=== PATIENT | male | born 1975 | race African-American/Black ===

== ENCOUNTER 2021-09-19 10:13 | Emergency (ER) | payer SELFPAY ==
--- NOTE | 2021-09-19 12:04 | RAD REPORT ---
EXAM DESCRIPTION: RAD - Lumbar Spine 3 Views - 09/19/2021 11:58 am CLINICAL HISTORY: low back pain COMPARISON: <Comparisons> FINDINGS: No acute fracture. No malalignment. Mild endplate spurring at L3-4 at L4-5. IMPRESSION: No acute osseous abnormality involving the lumbar spine.
[2021-09-19] MEDS ORDERED: ONDANSETRON 4 MG/2 ML VIAL ONE (12:16)
[2021-09-19] MEDS ORDERED: DIAZEPAM 10 MG/2 ML INJ SYRINGE ONE (12:16)
[2021-09-19] MEDS ORDERED: MORPHINE 4 MG/ML SYR ONE (12:16)
--- NOTE | 2021-09-19 14:10 | EDPHYS ---
Physician Documentation [facility] Name: Job Shell Age: 46 yrs Sex: Male : 1975 Arrival Date: 09/19/2021 Time: 10:19 Bed 24 Private MD: ED Physician Errol Moulton HPI: 09/19 10:21 This 46 yrs old Black Male presents to ER via EMS with complaints of Low Back Pain. jmm 10:21 The patient presents with pain that is acute. The pain does not radiate. Onset: The jmm symptoms/episode began/occurred acutely, just prior to arrival. This is a 46 year old male with no chronic medical conditions that presents to the ED with complaints of left lower back pain. Patient states this occurred after bending and the pain dropped him to his knees. Denies radiation of pain. Denies bowel or urinary issues. . Historical: - Allergies: 10:20 No Known Allergies; ss - Home Meds: 10:20 None [Active]; ss - PMHx: 10:20 None; ss - PSHx: 10:20 None; ss - Immunization history:: Client reports receiving the 2nd dose of the Covid vaccine. - Social history:: Smoking status: Patient denies any tobacco usage or history of. ROS: 10:21 Constitutional: Negative for fever, chills, and weight loss, Cardiovascular: Negative jmm for chest pain, palpitations, and edema, Respiratory: Negative for shortness of breath, cough, wheezing, and pleuritic chest pain. 10:21 Back: Positive for pain with movement. 10:21 All other systems are negative. Exam: 10:21 Constitutional: This is a well developed, well nourished patient who is awake, alert, jmm and in no acute distress. Head/Face: atraumatic. Eyes: EOMI, no conjunctival erythema appreciated ENT: Moist Mucus Membranes Neck: Trachea midline, Supple Chest/axilla: Normal chest wall appearance and motion. Cardiovascular: Regular rate and rhythm. No edema appreciated Respiratory: Normal respirations, no respiratory distress appreciated Abdomen/GI: Non distended, soft Skin: General appearance color normal 10:21 Back: no midline tenderness, left sided lumbar tenderness. . 10:21 Musculoskeletal/extremity: ROM: intact in all extremities. 10:21 Skin: Appearance: Color: normal in color. 10:21 Neuro: Orientation: is normal, Mentation: is normal, Memory: is normal. 10:21 Psych: Behavior/mood is pleasant, cooperative. Vital Signs: 10:19 BP 170 / 89; Pulse 64; Resp 17; Temp 98.4(O); Pulse Ox 100% on R/A; Weight 102.06 kg; ss Height 6 ft. 2 in. (187.96 cm); Pain 5/10; 12:18 BP 164 / 104; Pulse 69; Resp 17; Pulse Ox 100% on R/A; ab2 12:49 BP 106 / 45; Pulse 79; Resp 17; Pulse Ox 100% on R/A; ab2 13:33 BP 175 / 111; Pulse 80; Resp 17; Pulse Ox 100% on R/A; ab2 14:04 BP 158 / 06; Pulse 86; Resp 17; Pulse Ox 100% on R/A; ab2 10:19 Body Mass Index 28.89 (102.06 kg, 187.96 cm) ss 10:19 pain at worse when moving is 10/10 ss MDM: 10:21 Patient medically screened. parviz 14:07 Data reviewed: vital signs, nurses notes. Counseling: I had a detailed discussion with young the patient and/or guardian regarding: the historical points, exam findings, and any diagnostic results supporting the discharge/admit diagnosis, radiology results, the need for outpatient follow up, to return to the emergency department if symptoms worsen or persist or if there are any questions or concerns that arise at home. ED course: Xray is negative. Patient states feeling much better. I do not suspect cord compression, cauda equina, advised to follow up with pcp and otherwise given strict return precautions. patient understood and agrees with the plan of care. . 09/19 11:06 Order name: Lumbar Spine 3 Views; Complete Time: 12:08 EDMS Administered Medications: 11:23 Drug: Ketorolac 30 mg Route: IVP; Site: left antecubital; ab2 12:18 Follow up: Response: No adverse reaction ab2 11:23 Drug: Flexeril (cyclobenzaprine) 10 mg Route: PO; ab2 12:18 Follow up: Response: No adverse reaction ab2 12:18 Drug: morphine 4 mg Route: IVP; Site: left antecubital; ab2 13:37 Follow up: Response: No adverse reaction ab2 12:18 Drug: Zofran (Ondansetron) 4 mg Route: IVP; Site: left antecubital; ab2 13:37 Follow up: Response: No adverse reaction ab2 12:18 Drug: Valium (diazepam) 5 mg Route: IVP; Site: left antecubital; ab2 13:37 Follow up: Response: No adverse reaction ab2 Disposition Summary: 09/19/21 14:09 Discharge Ordered Location: Home jmm Condition: Stable jmm Diagnosis - Muscle spasm of back jmm Followup: jmm - With: Private Physician - When: 2 - 3 days - Reason: Recheck today's complaints, Continuance of care, Re-evaluation by your physician Discharge Instructions: - Discharge Summary Sheet [facility] - Muscle Cramps and Spasms jm Forms: - Medication Reconciliation Form [facility] - Thank You Letter [facility] - Antibiotic Education jm - Prescription Opioid Use [facility] Prescriptions: - Diclofenac Sodium 75 mg Oral Tablet Sustained Release - take 1 tablet by ORAL route 2 times per day; 30 tablet; Refills: 0, Product [facility] Selection Permitted - orphenadrine citrate 100 mg Oral Tablet Sustained Release - take 1 tablet by ORAL route 2 times per day As needed; 20 tablet; Refills: 0, [facility] Product Selection Permitted Addendum: 09/21/2021 18:41 Co-signature as Attending Physician, Errol Moulton MD I agree with the assessment and c west plan of care. Signatures: Dispatcher [employer] Errol Lin MD MD cha Mickail, Joel, PA PA jmm Smirch, Shelby, RN RN Roberto Bagley ab2
--- NOTE | 2021-09-19 14:10 | ER ---
Nurse's Notes [facility] Name: Job Shell Age: 46 yrs Sex: Male : 1975 Arrival Date: 09/19/2021 Time: 10:19 Bed 24 Private MD: Diagnosis: Muscle spasm of back Presentation: 09/19 10:19 Chief complaint: Patient states: Sudden onset of low back pain while at work. No known ss injury. Coronavirus screen: Client denies travel out of the [place] in the last 14 days. Ebola Screen:. Initial Sepsis Screen: Does the patient meet any 2 criteria? No. Patient's initial sepsis screen is negative. Does the patient have a suspected source of infection? No. Patient's initial sepsis screen is negative. Risk Assessment: Do you want to hurt yourself or someone else? Patient reports no desire to harm self or others. Onset of symptoms was September 19, 2021. 10:19 Method Of Arrival: EMS: [facility] ss 10:19 Acuity: DYANA 3 ss Historical: - Allergies: 10:20 No Known Allergies; ss - Home Meds: 10:20 None [Active]; ss - PMHx: 10:20 None; ss - PSHx: 10:20 None; ss - Immunization history:: Client reports receiving the 2nd dose of the Covid vaccine. - Social history:: Smoking status: Patient denies any tobacco usage or history of. Screenin:58 Abuse screen: Denies threats or abuse. Denies injuries from another. Nutritional ab2 screening: No deficits noted. Tuberculosis screening: No symptoms or risk factors identified. Fall Risk None identified. Assessment: 11:57 General: Appears in no apparent distress. uncomfortable, Behavior is calm, cooperative, ab2 appropriate for age. Pain: Complains of pain in low back area Pain. Neuro: No deficits noted. Level of Consciousness is awake, alert, obeys commands, Oriented to person, place, time, situation, Appropriate for age [employer] Scale are equal bilaterally Moves all extremities. Gait is unsteady, Speech is normal, Facial symmetry appears normal. Cardiovascular: No deficits noted. Denies chest pain, shortness of breath, Heart tones S1 S2 present Patient's skin is warm and dry. Respiratory: No deficits noted. Airway is patent Respiratory effort is even, unlabored, Respiratory pattern is regular, symmetrical, Breath sounds are clear bilaterally. GI: No deficits noted. No signs and/or symptoms were reported involving the gastrointestinal system. Abdomen is round non-distended, Bowel sounds present X 4 quads. : No deficits noted. No signs and/or symptoms were reported regarding the genitourinary system. EENT: No deficits noted. No signs and/or symptoms were reported regarding the EENT system. Derm: Skin is intact, is healthy with good turgor, Skin is dry, Skin is normal. Musculoskeletal: Reports pain in low back area. 13:33 Reassessment: Patient appears in no apparent distress at this time. Pt ambulated to ab2 bathroom with no assistance. Pt states pain has gotten better. Awaiting disposition at this time. Vital Signs: 10:19 BP 170 / 89; Pulse 64; Resp 17; Temp 98.4(O); Pulse Ox 100% on R/A; Weight 102.06 kg; ss Height 6 ft. 2 in. (187.96 cm); Pain 5/10; 12:18 BP 164 / 104; Pulse 69; Resp 17; Pulse Ox 100% on R/A; ab2 12:49 BP 106 / 45; Pulse 79; Resp 17; Pulse Ox 100% on R/A; ab2 13:33 BP 175 / 111; Pulse 80; Resp 17; Pulse Ox 100% on R/A; ab2 14:04 BP 158 / 06; Pulse 86; Resp 17; Pulse Ox 100% on R/A; ab2 10:19 Body Mass Index 28.89 (102.06 kg, 187.96 cm) ss 10:19 pain at worse when moving is 10/10 ss ED Course: 10:19 Patient arrived in ED. ss 10:19 Corona Virk PA is PHCP. jmm 10:19 Errol Moulton MD is Attending Physician. jmm 10:20 Triage completed. ss 10:20 Arm band placed on right wrist. ss 10:58 Roberto Peck is Primary Nurse. ab2 11:58 Patient has correct armband on for positive identification. Bed in low position. Call ab2 light in reach. Side rails up X2. Adult w/ patient. 11:58 No provider procedures requiring assistance completed. Maintain EMS IV. Dressing ab2 intact. Site clean \T\ dry. Gauge \T\ site: 18 L AC. 11:59 Lumbar Spine 3 Views In Process Unspecified. EDMS 14:04 IV discontinued, intact, bleeding controlled, No redness/swelling at site. Pressure ab2 dressing applied. Administered Medications: 11:23 Drug: Ketorolac 30 mg Route: IVP; Site: left antecubital; ab2 12:18 Follow up: Response: No adverse reaction ab2 11:23 Drug: Flexeril (cyclobenzaprine) 10 mg Route: PO; ab2 12:18 Follow up: Response: No adverse reaction ab2 12:18 Drug: morphine 4 mg Route: IVP; Site: left antecubital; ab2 13:37 Follow up: Response: No adverse reaction ab2 12:18 Drug: Zofran (Ondansetron) 4 mg Route: IVP; Site: left antecubital; ab2 13:37 Follow up: Response: No adverse reaction ab2 12:18 Drug: Valium (diazepam) 5 mg Route: IVP; Site: left antecubital; ab2 13:37 Follow up: Response: No adverse reaction ab2 Outcome: 14:09 Discharge ordered by . young 14:17 Discharged to home ambulatory, with family, with friend. ab2 14:17 Condition: good 14:17 Discharge instructions given to patient, family, Instructed on discharge instructions, follow up and referral plans. medication usage, Demonstrated understanding of instructions, follow-up care, medications, Prescriptions given X 2. 14:17 Patient left the ED. ab2 Signatures: Dispatcher [employer] EDMS Corona Virk PA PA jmm Smirch, Shelby, RN RN Roberto Bagley ab2
[2021-09-19 19:15] VITALS: TEMP 98.4; O2SAT 100
[2021-09-19 19:21] VITALS: BP 158/06
== END 2021-09-19 14:17 | disposition home or self-care (01) ==
LOC: ER 10:13
DX: M62.830 Muscle spasm of back (principal)
CPT/HCPCS: 72100; 96374; 96375; 99284; J2405; J3360